=== PATIENT | male | born 1955 | race Caucasian/White ===

== ENCOUNTER → 2021-01-04 11:51 | Outpatient (CLI) | payer OTHER, SELFPAY ==
[2021-01-04 12:40] LABS: COVID19 -Nasal RAPID Negative (Negative)
== END ==
PROVIDERS: Family Provider Nurse Practitioner; PCP Nurse Practitioner; Visit Provider Physician Assistant
DX: Z20.822 Contact with and (suspected) exposure to COVID-19 (principal)
CPT/HCPCS: 87635

== ENCOUNTER 2021-01-07 10:55 | Day surgery (SDC) | payer OTHER, SELFPAY ==
[2021-01-03 13:09] VITALS: BMI 35.9
[2021-01-07] VITALS (8 sets, daily range): BP systolic 82–135; BP diastolic 29–78; PULSE 75–95; RESP 12–16; TEMP 36.2–36.8; O2SAT 93–99; BMI 36.6
[2021-01-07] MEDS: LACTATED RINGERS 1,000 ML 42 ML IV (11:59)
[2021-01-07] MEDS: CELECOXIB 200 MG CAPSULE PO (12:06)
[2021-01-07] MEDS: ACETAMINOPHEN 325 MG TABLET 975 MG PO (12:06)
[2021-01-07] MEDS: PREGABALIN 75 MG CAPSULE PO (12:07)
--- NOTE | 2021-01-07 12:33 | PM.PREOP ---
Pre-operative Note COVID-19 COVID-19 status: Negative Result date/Date tested (Pos, Neg/Pending): 01/04/21 Interval Note History & Physical reviewed/Exam performed by Physician: Yes Changes to H&P: No
--- NOTE | 2021-01-07 14:07 | SUR.OPER ---
Supine on padded OR bed. Pillow under head, arms secured on padded armboards <90 degree abduction. Safety belt across torso. Non-operative leg secured with tape over blanket over lower leg. Operative leg secured in DeMayo positioner.
[2021-01-07] MEDS: BUPIVACAINE 0.25% (PF) 30 ML, EPINEPHrine 0.15 MG INJ (14:15)
[2021-01-07] MEDS: CEFAZOLIN 1 GM VIAL 2 GM IV (14:16)
--- NOTE | 2021-01-07 14:43 | SUR.PHASEI ---
Pt brought to PACU by LUMBER STACKER OPERATOR and SYD, Oral Airway in place, removed at 1445, pt woke up, airway removed, a/ox 4, able to ask for apple juice.
[2021-01-07] MEDS: fentaNYL 100 MCG/2 ML INJ IV ×2 (14:54→14:59)
--- NOTE | 2021-01-07 14:57 | PM.OP.1 ---
Operative Date/Time/Diagnoses Date of procedure: 01/07/21 Time of procedure: 14:57 Pre-op diagnosis: Patellofemoral pain after left total knee replacement Post-op diagnosis: same Procedure & Clinicians Procedure: Open lateral release with partial patellectomy, left knee Same procedure as scheduled: Yes Indications: The patient is a 65-year-old gentleman who had a total knee replacement performed by a different surgeon with good relief of pain except for persistent pain in the patellofemoral region. Radiographs appear to show impingement of the lateral patella on the metal of the lateral femoral condyle. He has agreed to open lateral release and excision of the impinging bone after discussion the risks benefits and alternatives. Risks discussed included but were not limited to: Failure to improve, infection, nerve damage, deep venous thrombosis, pulmonary embolism, stroke, myocardial infarction, permanent paralysis, aspiration pneumonia and . Surgeon: Mukul Viera Phlebotomy Support Tech: Mirella Lainez Click Yes if Unassisted: No Anesthesia Type: General and Local Operative Notes Findings: Impingement of the lateral patellar facet on the metal of the lateral femoral condyle. The lateral soft tissues were under considerable tension and immediately retracted upon lateral release. Closure Type: primary Specimen(s): none sent Estimated Blood Loss (mL): 1 Blood products transfused: none Tourniquet time (min): 10 Procedure in detail: The patient was seen in the preoperative area where he identified his left knee as the operative site and this was marked with my initials. Was taken to the operating room and placed on the operating room table in a supine position where he underwent induction with general anesthetic. He received preoperative antibiotics. A tourniquet was placed about his proximal left thigh and his left leg was prepared from the toes the tourniquet with ChloraPrep in the usual fashion draped through sterile drapes. A daytime babysitter-out was performed prior to incision. The leg was elevated and exsanguinated with an Esmarch bandage the tourniquet inflated to 250 mmHg. His pre-existing total knee scar was reopened and skin flaps gently mobilized with care being taken not to buttonhole the skin. A lateral release was then performed from the tibial plateau to the superior pole of the patella avoiding the patellar tendon and the vastus lateralis. This immediately sprung open indicating the tension the tissues had been under. The un protected lateral portion of the patella was then excised using a saw with care being taken not to impinge or cut on the plastic patellar button. At this point the wound was copiously irrigated. We did inspect the wound visually and by palpation and it appeared that all components were well fixed. I did release scar from the anterior interval between the patellar tendon and the anterior tibia. I also swept the lateral gutter and the suprapatellar pouch to ensure that these had not been completely scarred in. The knee was copiously irrigated with sterile saline solution. The tourniquet was deflated at a total tourniquet time of 10 minutes and hemostasis obtained with electrocautery. Closure was obtained with 3-0 Vicryl the subcutaneous layer and a running 3-0 barbed suture for skin. Dermabond was then applied. The knee was injected through a lateral approach with 20 mL of 0.25% Marcaine for postoperative pain control. A dressing of an Aquacel Ag dressing and an Derek wrap were applied. The patient was then transported to the recovery room in good condition having tolerated the procedure well. Complications: none Post-operative Condition: stable Disposition: PACU Plan for aftercare: The patient will be discharged today. He will be allowed to weight bear as tolerated. He will follow up in the office in 10-14 days. A prescription for oxycodone in 1 for or hydroxyzine have been provided for postoperative pain management.
[2021-01-07] MEDS: hydrOXYzine pamoate 25 MG CAPSULE PO (15:12)
[2021-01-07] MEDS: OXYCODONE IR 5 MG TABLET PO ×2 (15:12→15:43)
== END 2021-01-07 16:40 | disposition home or self-care (01) ==
PROVIDERS: Family Provider Nurse Practitioner; PCP Nurse Practitioner; Referring Provider Nurse Practitioner; Visit Provider Orthopaedic Surgery
PROC: 0SRD0JZ Replacement of Left Knee Joint with Synthetic Substitute, Open Approach (ICD-10-PCS; CPT 27447; principal; 2021-01-07 12:45)
DX: M25.562 Pain in left knee (principal); M25.862 Other specified joint disorders, left knee; Z96.652 Presence of left artificial knee joint; I10 Essential (primary) hypertension; G47.33 Obstructive sleep apnea (adult) (pediatric); K21.9 Gastro-esophageal reflux disease without esophagitis
CPT/HCPCS: 27350; 64450; J0171; J0690; J2704; J3010

== ENCOUNTER → 2021-04-29 13:11 | Outpatient (CLI) | payer OTHER, SELFPAY ==
[2021-04-29 15:51] LABS: COVID19 -Nasal RAPID Negative (Negative)
== END ==
PROVIDERS: Family Provider Nurse Practitioner; PCP Nurse Practitioner; Visit Provider Family Medicine Sleep Medicine
DX: Z20.822 Contact with and (suspected) exposure to COVID-19 (principal)
CPT/HCPCS: 87635; C9803

== ENCOUNTER 2021-05-03 10:35 | Observation (INO) | payer OTHER, SELFPAY ==
[2021-04-29 09:51] VITALS: BMI 35.9
[2021-05-01] VITALS (24 sets, daily range): BP systolic 105–135; BP diastolic 45–83; PULSE 76–99; RESP 14–18; TEMP 36.3–36.8; O2SAT 95–99; BMI 35.9
--- NOTE | 2021-05-01 06:00 | DI.RAD.S_ITS ---
PROCEDURE: XR KNEE RT 1TO2V INDICATIONS: post op total knee TECHNIQUE: 3 view(s) of the knee acquired. COMPARISON: [facility], , KNEE 1-2 VIEWS LEFT, 06/03/2017, 10:06. FINDINGS: Bones: Patient is status post knee joint arthroplasty. Hardware components are in expected positions. Visualized bony structures are intact. Soft tissues: Overlying postoperative changes are noted. IMPRESSION: Status post right total knee arthroplasty with expected postsurgical soft tissue changes. No evidence for acute hardware complication. Dictated by: Gerson Connolly M.D. on 05/01/2021 at 17:11 Approved by: Gerson Connolly M.D. on 05/01/2021 at 17:12
--- NOTE | 2021-05-01 10:58 | SUR.OPER ---
Supine on padded OR bed. Pillow under head, arms secured on padded armboards <90 degree abduction. Safety belt across torso. Non-operative leg secured with tape over blanket over lower leg. Operative leg secured in DeMayo/Mike/Nathe positioner. Foam padded brace at thigh of operative leg.
--- NOTE | 2021-05-01 12:27 | PM.PREOP ---
Pre-operative Note COVID-19 COVID-19 status: Negative Result date/Date tested (Pos, Neg/Pending): 04/29/21 Criteria for continued procedure: Increased loss of function, Continuing or worsening of significant or severe pain and Non-surgical alternatives not available or appropriate per current SOC Interval Note History & Physical reviewed/Exam performed by Physician: Yes Changes to H&P: No
[2021-05-01] MEDS: LACTATED RINGERS 1,000 ML 42 ML IV (12:38)
[2021-05-01] MEDS: ACETAMINOPHEN 325 MG TABLET 975 MG PO (12:44)
[2021-05-01] MEDS: CELECOXIB 200 MG CAPSULE PO (12:45)
[2021-05-01] MEDS: PREGABALIN 75 MG CAPSULE PO (12:45)
[2021-05-01] MEDS: CEFAZOLIN 2 GM/20 ML SYRINGE IV (13:23)
[2021-05-01] MEDS: TRANEXAMIC ACID 1,000 MG VIAL 1000 MG INJ ×2 (13:23→14:42)
[2021-05-01] MEDS: BUPIVACAINE 0.5% W/ EPI (PF) 30 ML VIAL INJ (13:37)
[2021-05-01] MEDS: MORPHINE 4 MG/ML INJ INJ (13:39)
[2021-05-01] MEDS: BUPIVACAINE LIPOSOME 266 MG/20 ML VIAL INJ (13:40)
--- NOTE | 2021-05-01 15:00 | P.OP_ITS ---
Operative Date/Time/Diagnoses Date of procedure: 05/01/21 Time of procedure: 15:01 Pre-op diagnosis: Right knee osteoarthritis Post-op diagnosis: same Procedure & Clinicians Procedure: right total knee replacement Same procedure as scheduled: Yes Indications: The patient has had progressively worsening right knee pain with radiographic changes consistent with arthritis. Non-operative management has failed and the patient has requested total knee replacement. The risks, benefits and alternatives to surgery were discussed with the patient prior to proceeding. Risks discussed included, but were not limited to, failure to relieve pain, stiffness, infection, nerve damage, deep venous thrombosis, pulmonary embolism, stroke, coma, heart attack, permanent paralysis and , as well as the potential need for eventual revision of the prosthetic. Surgeon: Mukul Viera Multifocal Button Grinder: Mirella Lainez Operative Notes Findings: severe medial compartment osteoarthritis with moderate patellofemoral degenerative change. Closure Type: primary Specimen(s): none sent Prosthetic devices, grafts, tissues, transplants, or devices: Implants used in this procedure were manufactured by the [employer] and [employer] and included the BCS II Journey total knee replacement with a size 7 Oxinium femur, size 7 non porous tibial base plate, a 9 mm cross-linked polyethylene tibial insert and a 41 mm oval Kelsy II patella. Applied: implant(s) Estimated Blood Loss (mL): 50 Blood products transfused: none Tourniquet time (min): 58 Procedure in detail: The patient was seen in the pre-operative area, where the patient identified the right knee as the operative site and this was marked with my initials. The patient received pre-operative antibiotics, and was taken to the operating room and placed on the operative table in the supine position. After satisfactory anesthesia, a head sugar reprocess operator out was performed. The right leg was encircled with a tourniquet about the proximal thigh, and the leg was prepared from the toes to the tourniquet with ChloraPrep in the usual fashion and draped through sterile drapes. The leg was elevated and exsanguinated with Eschmark bandage and the to urniquet inflated to 250 mmHg pressure. The knee was approached through an approximately 18 cm incision centered over the patella and carried into the knee through a medial parapatellar arthrotomy. The anterior osteophytes and soft tissues were removed. The rotational landmarks of Teller's line and the transepicondylar axis were marked on the femur with electrocautery, and intramedullary guide holes for the femur and tibia were created. The distal femoral cut was made in 6 degrees of valgus using the intramedullary guide at the primary cut setting. The proximal tibial cut was then made using the intramedullary guide, taking 9 mm of bone off the less involved side. The extension gap was checked and the rotation of the femoral component confirmed with the gap balancing system. The anterior, posterior and chamfer cuts were then made. The posterior osteophytes and soft tissues were then removed. The posterior capsule was injected with part of a mixture of 60 ml 0.25% Marcaine mixed with 20 ml Exparel and 4 mg of morphine for post-operative pain control. The remainder of this mixture was injected into the capsule and subcutaneous tissues during cement curing. The tibia was prepared with the rotation set by an extra medullary guide. Trial tibial and femoral components were then placed and the intercondylar notch cut through the femoral trial. Range of motion was 0-135 degrees, with good stability throughout the range. The patella was then cut to accommodate the patellar prosthetic. There was no need for a lateral release. The trials were then removed, and the femoral hole plugged with a bone plug. The bone was prepared with pulsatile lavage, and dried with a sponge. Cement was applied and the final prosthetics placed. Excess cement was removed during and after cement curing. After confirming there was no extruded cement posteriorly, the final tibial insert was placed. The knee was copiously irrigated and the tourniquet deflated. Hemostasis was obtained. The capsule was closed with interrupted # 2 polyester suture. The subcutaneous layer was closed with 3-0 Vicryl, and the skin with a running 3-0 V-Lock suture and Dermabond. An Aquacel Ag dressing was applied and the patient was taken to recovery having tolerated the procedure well. Complications: none Post-operative Condition: stable Disposition: PACU Plan for aftercare: The patient will be maintained on a standard total knee replacement protocol with weight bearing as tolerated. The patient will receive aspirin and sequential compression devices for DVT prophylaxis. The patient will be discharged home when safe for the home environment.
[2021-05-01] MEDS: HYDROMORPHONE 2 MG INJ IV ×5 (15:31→16:10)
[2021-05-01] MEDS: ACETAMINOPHEN 325 MG TABLET PO (16:18)
[2021-05-01] MEDS: OXYCODONE IR 5 MG TABLET PO ×3 (16:18→20:39)
[2021-05-01] MEDS: fentaNYL 100 MCG/2 ML INJ IV ×2 (16:21→16:46)
--- NOTE | 2021-05-01 16:54 | SUR.PHASEI ---
report called to Sussy Cuellar. Opportunity for questions given. Pt updated on transfer and plan of care and is agreeable. Pain more controlled, stating current level 08/16. Ice pack on surgical site. Pt heading to rm 211
--- NOTE | 2021-05-01 18:33 | PC.NURSE ---
Patient is alert and oriented x3, he had a total r.knee replacement. Dressing with aquacel to r.knee and parviz wrap in place. He is tolerating liquids without any nausea. He is getting LR at 100cc/hr. Given pain medication in recovery room and is comfortable at this time. PPx2 and cms wnl.
[2021-05-01] MEDS: LACTATED RINGERS 1,000 ML 100 ML IV (18:49)
[2021-05-01] MEDS: IBUPROFEN 400 MG TABLET PO ×2 (18:49→20:38)
[2021-05-01] MEDS: ACETAMINOPHEN 325 MG TABLET 650 MG PO ×2 (18:49→20:37)
[2021-05-01] MEDS: PANTOPRAZOLE DR 40 MG TABLET PO (20:39)
[2021-05-01] MEDS: CYCLOBENZAPRINE 10 MG TABLET PO (20:39)
[2021-05-01] MEDS: lisinopriL 10 MG TABLET PO (20:39)
[2021-05-01] MEDS: TERAZOSIN 5 MG CAPSULE 10 MG PO (20:41)
[2021-05-01] MEDS: ATORVASTATIN 20 MG TABLET 10 MG PO (21:14)
[2021-05-01] MEDS: ASPIRIN EC 81 MG TABLET PO (21:14)
[2021-05-01] MEDS: DOCUSATE 100 MG CAPSULE PO (21:14)
--- NOTE | 2021-05-01 21:32 | RT ---
Went to assess pt at 2105. Pt is refusing scheduled atrovent SVN and has no interest in taking while inpatient. Pt was not in any respiratory distress, SpO2 98% on RA, clear BS. Per pt, they don't take any MDIs at home. Will D/C scheduled atrovent SVN, but will keep PRN order. RN aware.
[2021-05-02] VITALS (7 sets, daily range): BP systolic 120–147; BP diastolic 56–75; PULSE 79–99; RESP 14–18; TEMP 36.3–37.2; O2SAT 96–98
[2021-05-02] MEDS: LACTATED RINGERS 1,000 ML 100 ML IV (04:30)
[2021-05-02] MEDS: OXYCODONE IR 5 MG TABLET PO (04:33)
[2021-05-02] MEDS: IBUPROFEN 400 MG TABLET PO ×4 (04:33→21:07)
[2021-05-02] MEDS: hydrOXYzine pamoate 25 MG CAPSULE PO (04:33)
[2021-05-02 05:32] LABS: Hematocrit 34.8 % (41-53); Hemoglobin 11.2 g/dL (13.5-17.5)
[2021-05-02] MEDS: OXYCODONE IR 10 MG TABLET PO ×2 (07:58→18:45)
[2021-05-02] MEDS: ASPIRIN EC 81 MG TABLET PO ×2 (07:58→18:45)
[2021-05-02] MEDS: SODIUM CHLORIDE 0.9% FLUSH 10 ML IV ×2 (07:59→18:47)
--- NOTE | 2021-05-02 08:31 | P.DS_ITS ---
History of Present Illness History of Present Illness Date Patient Seen: 05/02/21 Time Patient Seen: 08:32 Chief complaint: Right knee pain s/p right TKA Narrative: Patient is complaining of [id number] right knee pain this morning. He denies any new numbness or tingling, no shortness of breath or chest pain, fevers chills or night sweats. Overall the patient is feeling well, although he has not worked with physical therapy yet. Discharge Providers Provider Discharge Date: 05/02/21 Primary care physician: ZOHREH Bernard Consults: 05/01/21 17:52 Consult to Discharge Planning Routine Comment: Consult to Physical Therapy Evaluate & Treat Comment: Physician Instructions: postop TKA protocol Consult to Respiratory Therapy Evaluate & Treat Comment: Physician Instructions: Evaluate and treat Discharge provider: Mirella Lainez PA-C Summary Hospital Course Discharge Diagnosis: Right knee osteoarthritis Hospital Course: Operative Date/Time/Diagnoses Date of procedure: 05/01/21 Time of procedure: 15:01 Procedure & Clinicians Procedure: ?right total knee replacement Same procedure as scheduled: Yes Indications: ?The patient has had progressively worsening right knee pain with radiographic changes consistent with arthritis. Non-operative management has failed and the patient has requested total knee replacement. The risks, benefits and alternatives to surgery were discussed with the patient prior to proceeding. Risks discussed included, but were not limited to, failure to relieve pain, stiffness, infection, nerve damage, deep venous thrombosis, pulmonary embolism, stroke, coma, heart attack, permanent paralysis and , as well as the potential need for eventual revision of the prosthetic. Surgeon: Mukul Viera Sales Representative Publications: Mirella Lainez Operative Notes Findings: ?severe medial compartment osteoarthritis with moderate patellofemoral degenerative change. Closure Type: primary Specimen(s): none sent Prosthetic devices, grafts, tissues, transplants, or devices: ?Implants used in this procedure were manufactured by the [employer] and [employer] and included the BCS II Journey total knee replacement with a size 7 Oxinium femur, size 7 non porous tibial base plate, a 9 mm cross-linked polyethylene tibial insert and a 41 mm oval Kelsy II patella. Applied: implant(s) Estimated Blood Loss (mL): 50 Blood products transfused: none Tourniquet time (min): 58 Status at Discharge Cognitive/behavioral status at discharge: oriented Functional status at discharge: uses cane/walker Overall status at discharge: patient is progressing back to baseline Exam Vital Signs (past 8 hours): - 05/02/21 04:30 05/02/21 08:06 Temperature 97.6 F 98.0 F Pulse Rate 81 80 Respiratory Rate 18 18 Blood Pressure 142/69 H 147/56 H Pulse Oximetry 96 96 Oxygen Delivery Method Room Air Oxygen Flow Rate 0 Narrative Exam Narrative: Pleasant 66-year-old male, resting comfortably in bed, no acute distress. Dressing is clean, dry, intact. Bilateral lower extremities: Motor functions are grossly intact, sensation is grossly intact to light touch, calves are soft and nontender to palpation. Objective Labs Result Diagrams: 05/02/21 05:11 Labs: Laboratory Results - last 24 hr 05/02/21 05:11 Hgb 11.2 L Hct 34.8 L PFSH Medical History Anemia Arthritis BPH (benign prostatic hyperplasia) Chronic pain Dysphagia Esophageal stricture GERD (gastroesophageal reflux disease) History of esophageal dilatation HTN (hypertension) Inflammation of joint of right knee Insomnia Kidney stone (~2006) Lumbar spinal stenosis YOLY (obstructive sleep apnea) Osteoarthritis RLS (restless legs syndrome) Tubular adenoma Surgical History History of esophagogastroduodenoscopy (EGD) (10/25/18) History of hip surgery (2008) History of total left knee replacement (2017) Hx of appendectomy Hx of arthroscopy of left knee Hx of colonoscopy with polypectomy Hx of prior ablation treatment Hx of tonsillectomy Status post epidural steroid injection Social History household members: spouse Smoking Status: Never smoker alcohol intake: former Discharge Assessment & Plan Assessment and Plan Assessment: Stable status post right total knee arthroplasty Plan of Treatment: -mobilize with PT. Weightbearing as tolerated front wheel walker -aspirin 81 mg twice daily x6 weeks for DVT prophylaxis -continue with current pain regimen -DC home today when cleared by PT Discharge Plan Discharge Plan Patient Disposition: Home Discharge orders & Medications Discharge Orders: Discharge (Order); Ordered 05/02/21 Ordered By: Mirella Lainez Prescriptions: New acetaminophen 500 mg capsule 500 mg PO Q4H MDD Max 3000 mg per day PRN (Reason: fever or pain) Qty: 90 0RF aspirin 81 mg Tablet,Delayed Release (Dr/Ec) 81 mg PO BID 42 Days Qty: 84 0RF Rx Instructions: Prevent blood clots docusate sodium 100 mg Capsule 100 mg PO BID PRN (Reason: Constipation from narcotic pain meds) Qty: 30 0RF hydroxyzine pamoate 25 mg Capsule 25 mg PO Q6HR PRN (Reason: Pain/spasms/nausea) Qty: 30 0RF ibuprofen 400 mg Tablet 400 mg PO Q4HR MDD Max 2400 mg per day PRN (Reason: Pain/inflammation) Qty: 90 0RF Rx Instructions: Take with food oxycodone 10 mg Tablet 10 mg PO Q3HR PRN (Reason: Pain, Severe (7-10)) Qty: 42 0RF Continued cyclobenzaprine 10 MG tablet 10 mg PO HS Qty: 0 0RF lovastatin 40 MG tablet 40 mg PO HS Qty: 0 0RF omeprazole 40 MG capsule,delayed release(DR/EC) 40 mg PO BEDTIME Qty: 0 0RF terazosin 10 MG capsule 10 mg PO HS Qty: 0 0RF polysaccharide iron complex [iFerex 150] 150 mg iron Capsule 150 mg PO DAILY 0RF lisinopril 10 mg Tablet 10 mg PO BEDTIME 0RF folic acid 1 mg PO DAILY 0RF Label Comments: not taking ipratropium bromide 21 mcg inhalation BID 0RF iron 150 mg PO DAILY 0RF Label Comments: not taking Discontinued hydrocodone-acetaminophen 7.5-325 mg Tablet 1 tab PO Q4-6H PRN (Reason: Pain) 0RF Follow up/Referrals: Lois Rodriguez ARNP [Primary Care Provider] - Mukul Viera MD [Physician] - (10-14 days for postoperative visit) Diet/Activity/Treatments Diet: Diet as Tolerated Other treatments: Medications: -Aspirin 81mg twice daily x6 weeks to prevent blood clots. -OTC Tylenol 500 mg 1 tablet every 4 hours as needed for pain/fever. Max 6 tablets per day. -Ibuprofen 400 mg 1 tablet every 4 hours as needed for pain/inflammation. Max 2,400 mg per day. -Oxycodone 10 mg take 1/2-1 tablets every 4 hours as needed for moderate-severe pain (narcotic pain medication). -Vistaril (hydroxyine) 25mg 1 tab every 4 hours as needed for spasms/pain/nausea. -As needed medications: -Ducolax and /or MiraLax as needed for constipation from narcotic pain medications. -Pepcid AC as needed for stomach upset (usually from aspirin or ibuprofen). Dressing/Wound care: -Remove the Derek wrap 48 hours after surgery. -Keep Aquacell dressing in place until postoperative follow-up office visit. -Okay to shower. Keep wound out of direct water stream. No soaking or submerging until all the scabs fall off (approximately 6 weeks). -Please call the office if dressing becomes wet, soiled, or saturated. Activities: -Weight-bearing as tolerated. Use front wheeled walker, and progress to cane when safe. -Continue with home exercises as directed by your physical therapist. -Elevate ?toes above the nose if you have significant swelling in your lower leg. (A wedge pillow is easiest.) -Ice your incision as needed for pain/inflammation/swelling. Protect your skin with a folded pillowcase. Follow-up: -Follow-up with your surgeon or PA in the office in 10-14 days after surgery. -Follow-up with your surgeon 6 weeks postoperatively. Call the office if you have chest pain, shortness of breath, significant swelling that will not resolve with elevating, fever over 101?, significantly worsening pain. [facility]: [phone] Skin/Wound/Dressing Care Report to your healthcare provider any signs of infection, such as:: chills, fever, night sweats, unusual drainage and unusual redness Visit Report/Discharge Packet Instructions: DI for Knee Replacement Stand Alone Forms: Surgery Discharge Discharge Data Primary Care Provider: Lois Rodriguez Attending Provider: Mukul Viera
--- NOTE | 2021-05-02 10:15 | PT.IIE ---
Current Diagnoses Unilateral primary osteoarthritis, right knee (05/01/21) Surgery Performed Operation Date: 05/01/21 12:00 Actual Procedures p Total Knee Arthroplasty(Right) - Mukul Viera MD Medical History (Last Reviewed 05/02/21 @ 08:33 by Mirella Lainez PA-C) Anemia Arthritis BPH (benign prostatic hyperplasia) Chronic pain Dysphagia Esophageal stricture GERD (gastroesophageal reflux disease) History of esophageal dilatation HTN (hypertension) Inflammation of joint of right knee Insomnia Kidney stone (~2006) Lumbar spinal stenosis YOLY (obstructive sleep apnea) Osteoarthritis RLS (restless legs syndrome) Tubular adenoma Physical Therapy Inpatient Evaluation/Re-Eval M1 PT/OT-IP Prior Functional Status Start: 05/02/21 13:03 Freq: NEEDED Status: Active Protocol: Document 05/02/21 10:15 AB (Rec: 05/02/21 13:19 AB [email or web address]) Medical Review Prior Functional Status Medical History Reviewed Yes Communication able to make needs known Mobility and Gait pt stated that he is modified independent with all mobilities and ambulation without AD Social History Household Members spouse Living Arrangements House Number of Floors (Floors) Two Floors Number of Stairs To Enter/Railing? 2 steps without rails ( pt stated that he uses 1 crutch to assist him) 20 steps with R rail ascending to bedroom level Home Environment Standard Height Toilet,Tub/ Shower Home Equipment Straight Cane,Crutches,Raised Toilet Seat w/Armrests,Grab Bars In Shower Additional Social History Comment pt has a standard walker pt stated that his spouse goes to dialysis and is limited to how she can assist pt M2 PT-IP Current Condition Start: 05/02/21 13:03 Freq: NEEDED Status: Active Protocol: Document 05/02/21 10:15 AB (Rec: 05/02/21 13:19 AB [email or web address]) Physical Therapy Current Condition Current Condition Evaluation Date 05/02/21 Treatment Diagnosis s/p R TKA; difficulty in walking Onset Date 05/01/21 M3 PT-IP Subjective Start: 05/02/21 13:03 Freq: NEEDED Status: Active Protocol: Document 05/02/21 10:15 AB (Rec: 05/02/21 13:19 AB [id number]) Subjective Physical Therapy Visit Type Type Initial Evaluation Visit Start Time 10:15 Visit Stop Time 10:50 Total Visit Minutes 35 Number of CANAL TENDER Visits 0 Physical Therapy Visit Comments Patient Comments stated that he cannot move his RLE Therapy Pain Assessment Pain When Pain Assessed At Rest Pain Present Pain Present Pain Reported Location Right Knee Intensity 5 Scale Used increases to 9/10 with mobility Pain Management Techniques Apply Cold,Modification of Treatment,Re-positioning, Timing of Activity with Medications M4 PT-IP Mobility and Gait Start: 05/02/21 13:03 Freq: NEEDED Status: Active Protocol: Document 05/02/21 10:15 AB (Rec: 05/02/21 13:19 AB [id number]) PT-Bed Mobility Assessment Supine to Sit Supine to Sit Minimal Assistance PT-Transfer Assessment Sit to and From Stand Sit to and from Stand Moderate Assistance,1 Person Assistance,Use of Upper Extremities Equipment Transfer Assistive Device Gait Belt,Front Wheeled Walker Orthotic/Prosthetic Devices or Brace: No Transfers Transfer Destination Chair Transfer Technique ambulated Transfer Ability Level of Assist Moderate Assistance,1 Person Assistance,Use of Upper Extremities Comments Mobility Comments pt requiring min A for supine to sit. c/o increase R knee pain with mobility to 9/10. pt has decrease safety awareness and tends to guard RLE. pt sat on EOB CGA. completed sit to stand mod A and cues and ambulated in room using standard walker mod A and cues ~ 20 ft. instructed pt to sit on EOB mod A for controlled descent. educated pt on techniques with sit to stand and completed sit to stand from chair x 2 reps min to mod A and max cues. increase UE use to support on walker. pt currently only has ~ 35 deg R knee flexion and pt very guarded and does not want to bend knee. educated pt on importance of ROM. pt understood. positioned pt on chair. call light and table placed within reach. Gait Assessment Gait Gait Assistance Required: Moderate Assistance,1 Person Assist Distance (Feet) 20 Able to Maintain Weight Bearing Status Yes During Gait Assistive Devices Assistive Device Gait Belt,Standard Walker Orthotic/Prosthetic Devices or Brace: No Gait Deviations General Gait Pattern Antalgic,Decreased Stride Length,Decreased Feet Clearance Factors Limiting Gait Function Factors Limiting Gait Function Decreased Activity Tolerance, Decreased Strength,Limited Range of Motion,Pain,Poor Balance,Poor Safety Awareness PT-Balance Assessment Sitting Balance and Reactions Static Sitting Balance Ability Good Dynamic Sitting Balance Ability Fair Standing Balance and Reactions Static Standing Balance Ability Poor Dynamic Standing Balance Ability Poor Device Used FWW M5 PT-IP Objective Assessments Start: 05/02/21 13:03 Freq: NEEDED Status: Active Protocol: Document 05/02/21 10:15 AB (Rec: 05/02/21 13:19 AB [email or web address]) Orientation Orientation/Cognition Level of Alertness Alert Orientation Name Language Function Ability Hard of Hearing Safety Awareness Decreased Safety Awareness Memory Description Short Term Impaired Gross Range of Motion Lower Extremity ROM Assessment Right Impaired Impairments R knee flexion: ~ 35 deg R knee extension: ~ 20 deg less to 0 Strength Lower Extremity Strength Assessment Right Impaired Hip 3+/5 Knee 3/5 Coordination Assessment Gross Coordination Gross Coordination WNL Muscle Tone Muscle Tone WNL Yes M6 PT-IP Treatment Start: 05/02/21 13:03 Freq: NEEDED Status: Active Protocol: Document 05/02/21 10:15 AB (Rec: 05/02/21 13:19 AB [id number]) Physical Therapy Treatment Education Education Provided Precautions,Weight Bearing Status,Post-Op Packet,Safety M7 PT-IP Assessment and Plan Start: 05/02/21 13:03 Freq: NEEDED Status: Active Protocol: Document 05/02/21 10:15 AB (Rec: 05/02/21 13:19 AB [email or web address]) PT Summary Assessment and Plan Potential Rehabilitation Potential Fair Status of Condition at Evaluation Evolving Summary Impairments Pain,ROM,Strength,Balance, Coordination,Sensation,Tone, Cognition,Bed Mobility, Transfers,Gait,Activity Tolerance Assessment Summary pt requiring mod A and max cues with all tasks. c/o increase pain of 9/10 R knee with mobility. pt has limited assistance at home and spouse goes to dialysis and cannot be with home to assist pt. d/ c plan depending on progress. Pt has 2 steps to enter the house without rails and 20 steps with R rail to get to bedroom level. stair climbing has to be complete safely for safe d/c. Goals Bed Mobility Goal Independent Transfer Goal Independent,Front Wheeled Walker Gait Goal Independent,Four Wheel Walker Gait Distance 200 Other Goals ambulation using std walker up/down 2 steps 1 crutch SBA + 20 steps R rail SBA Days to Meet Goals 10 Frequency of Treatment Frequency Of Treatment Twice a Day Treatment Plan Physical Therapy Treatment Plan Bed Mobility Training,Transfer Training,Gait Training, Therapeutic Exercise,Balance Retraining,Post Op Education, Discharge Planning,Hot or Cold Pack,Neuromuscular Re-ed, Coordination Retraining,Manual Therapy Weight Bearing Status Weight Bearing Status Weight Bear as Tolerated Allowed Weight Bearing Amount (enter % RLe wBAT or #) (%) Recommendations To Nursing Amount of Assist Needed 1 Person Assist Discharge Recommendations PT Discharge Recommendations Home with 29/09 Assist Available,Home Health,SNF Rehab,Home vs SNF Transportation Needs at Discharge Private Vehicle,Wheelchair/ Cabulance
[2021-05-02] MEDS: HYDROMORPHONE 2 MG TABLET PO ×3 (10:45→21:04)
[2021-05-02] MEDS: ACETAMINOPHEN 325 MG TABLET 650 MG PO ×2 (10:46→18:46)
--- NOTE | 2021-05-02 11:23 | CM.DANOTE ---
DCP: Case received, EMR reviewed and met with patient. Introduced self and role. Was able to meet with patient and obtain information regarding his baseline activity status prior to surgery. DCP assessment completed with information currently available. Patient is a 66 year old male who admitted yesterday morning to the care of the orthopedic team. PCP: Dr. Rodriguez. Payer: confirmed: [facility]. Patient came to the hospital via private vehicle for a surgical procedure. Patient had right total knee arthroplasty secondary to osteoarthritis of his knee. Met with patient in his room. He is alert and oriented. He indicated, this is his second knee surgery, he had his other knee done in January. Confirmed that patient resides in [facility] with his spouse, Caroline. He is employed at [employer]. He indicated that he is independent at his baseline, but does have some stairs to navigate at home. He is hopeful to continue with outpatient P.T. P: Patient has discharge orders for home today, he will work with the therapy team prior to discharge. Corie Graham RN/Marine Electronics Repairer. Discharge Planning/Care Management CM Discharge Assessment Start: 05/02/21 11:21 Freq: Status: Active Protocol: Document 05/02/21 11:21 (Rec: 05/02/21 11:23 [id number]) Discharge Planning Assessment Assigned Paraffiner Corie Graham RN/Marine Electronics Repairer Advance Directives? No History Provided By Patient,Medical Record Prior Living Arrangements House Household Members spouse Type of transporation used prior to Drives own vehicle admit Independent with ADL's Yes Is patient alert and oriented? Yes Caregiver for Another No Patient/Family Preference OP PT Therapy Barriers to Discharge No Discharge Plan Home Transportation Arrangement Spouse, or family member Referrals Initiated None needed Whiteboard Updated in Patient Room with Yes name and ext. # of Paraffiner Review Status In Process Next Review Type Continued Stay Review Pre-Anesthesia Assessment Start: 04/29/21 09:51 Freq: Status: Active Protocol: Document 04/29/21 09:51 CAB (Rec: 04/29/21 10:26 CAB [id number]) Pre-Anesthesia Assessment Patient Information Reviewed Via Phone Assessment Assessment Completed With Patient H&P Completed Within 30 Days Yes Diagnostic Results BMP/CMP,CBC,EKG Comment Outside labs/EKG scanned, COVID screen 04/29/21 Primary Care Provider Lois Rodriguez Seen Specialist in Last 12 Months Yes Specialist Seen Orthopedist Comment PCP visit 04/23/20 scanned to record Primary Language Yoruba Sheep Farm Manager Required No Height 6 ft 2 in Weight 280 lb Body Mass Index (BMI) 35.9 Hearing Ability Normal Visual Assist None Dentition Type Teeth, Natural Present,Teeth, Broken,Teeth, Missing Barriers to Learning None Hx Anesthesia Reactions No: Hx of esophageal stricture w/dilation, untreated YOLY Hx Family Anesthesia Reaction No Hx Malignant Hyperthermia No Hx Blood Transfusions No Hx Blood Transfusion Reaction No Anesthesia Review Requested No Food Photographer No alcohol intake former Smoking Status Never smoker Substance Use Type does not use Pain Present Pain Reported Musculoskeletal Symptoms Abnormal Gait,Difficulty Walking,Joint Pain,Limited Range of Motion History of Falling (Recent or History of Yes ) Patient is completely paralyzed or No completely immobile Mental Status Oriented to own ability Is patient on oxygen? No Does patient have MOY/SOB No Hx Sleep Apnea Yes: Does not tolerate CPAP CPAP/BIPAP use prescribed not used Can You Climb a Flight of Stairs Without Yes SOB Hx Chest Pain No Hx SOB No Hx Syncope or Dizziness No Anti-Coagulant Therapy No Has a Aluminum Hydroxide Process Operator No Cardiac Testing No Hx Pacemaker/ICD No Pacemaker Rep Required? No dysphagia Yes: Recurrent choking, hx esophageal stricture/dilation Gastrointestinal Symptoms Reflux Urinary Catheter Present No Hx Urinary Self Catheterization No Diabetes No HgbA1C 5.5 Date 04/02/21 Hx Drug Resistant Organism No Presence of External or Internal Medical Yes: Left knee/hip Devices Have you had any close contact with No someone diagnosed with COVID-19? Received a COVID vaccine? Yes Received all doses? Yes Marital Status Lives With spouse Prior Living Arrangements House Number of Floors (Floors) Two Floors Support System Spouse Does the Patient Have Assistance After Yes Surgery Patient Discharge Plan Description Return Home Comment Pt not advised on length of stay per surgeon Feels Safe in Current Environment Yes Been Physically Hurt or Threatened By a No Person in Current Environment Do you have thoughts of harming yourself None or others? Are you currently considering suicide? No Do you have a plan to hurt yourself or No Plan others? Do You Have Any Spiritual Beliefs That No May Affect Your HC Choices? Do You Have Any Cultural Practices That No May Affect Your HC Choices? Who Can We Speak to About Patient's Care Family, friends Identifying Code for Release of Patient Declines to issue Information Health Care Proxy/Next of Kin Caroline () Health Care Proxy Phone Number Pt to update dos Advance Directives? No Power of Knife Operator No PAC Instructions Durable medical equipment, Medications to take/avoid, Nasal antibiotic,No ETOH/ petroleum product on skin DOS, NPO,Pre-op antibiotic,Pre- surgical wash,Sturdy shoes/ comfortable clothes,Do not bring valuables and remove jewelry
--- NOTE | 2021-05-02 14:08 | PC.NURSE ---
Patient up with therapy early this morning when up pain 8/10. Requesting more pain medication. Gave 2mg po dilaudid. Patient later reports pain is improved down to 4/10. Patient able to work with therapy again. Therapy requires patient to have another session tomorrow morning.
--- NOTE | 2021-05-02 14:09 | PT.IPTN ---
Current Diagnoses Unilateral primary osteoarthritis, right knee (05/01/21) Surgery Performed Operation Date: 05/01/21 12:00 Actual Procedures p Total Knee Arthroplasty(Right) - Mukul Viera MD Physical Therapy Treatment Note M2 PT-IP Current Condition Start: 05/02/21 13:03 Freq: NEEDED Status: Active Protocol: Document 05/02/21 10:15 AB (Rec: 05/02/21 13:19 AB [id number]) Physical Therapy Current Condition Current Condition Evaluation Date 05/02/21 Treatment Diagnosis s/p R TKA; difficulty in walking Onset Date 05/01/21 M3 PT-IP Subjective Start: 05/02/21 13:03 Freq: NEEDED Status: Active Protocol: Document 05/02/21 13:44 KS (Rec: 05/02/21 14:24 KS [id number]) Subjective Physical Therapy Visit Type Type Treatment Note Visit Start Time 13:44 Visit Stop Time 14:09 Total Visit Minutes 25 Number of MANAGER ONCOLOGY Visits 1 Physical Therapy Visit Comments Patient Comments Pt agreeable to working w/ therapy. Therapy Pain Assessment Pain When Pain Assessed During Mobility Pain Present Pain Present Pain Reported Location Right Knee Intensity 4 Scale Used Numeric (0 - 10) Description Tightness Pain Management Techniques Apply Cold,Modification of Treatment,Re-positioning, Timing of Activity with Medications M4 PT-IP Mobility and Gait Start: 05/02/21 13:03 Freq: NEEDED Status: Active Protocol: Document 05/02/21 13:44 KS (Rec: 05/02/21 14:24 KS [id number]) PT-Transfer Assessment Sit to and From Stand Sit to and from Stand Minimal Assistance,1 Person Assistance,Use of Upper Extremities Equipment Transfer Assistive Device Gait Belt,Front Wheeled Walker Orthotic/Prosthetic Devices or Brace: No Transfers Transfer Destination Chair Transfer Technique ambulated Transfer Ability Level of Assist Contact Guard Assistance, Minimal Assistance,1 Person Assistance,Use of Upper Extremities Comments Mobility Comments Pt in chair upon arrival and hesitant to participate due to R knee/quad pain but agreeable. Pt Min A for sit<> stand w/ FWW and the ambulatd ~60 ft around room w/ SW and CGA and cues for sequencing and turning. Pt reported feeling less pain and more stable compred to this morning but feels he is unable to tolerate more ambulation or stairs today. Pt returned to chair and demonstrated gait belt to assist w/ raising RLE. Pt states he has been completing LE exercises throughout the day. Pt left in chair w/ all needs in reach and alarm on. Gait Assessment Gait Gait Assistance Required: Contact Guard Assist,1 Person Assist Distance (Feet) 60 Able to Maintain Weight Bearing Status Yes During Gait Assistive Devices Assistive Device Gait Belt,Standard Walker Gait Deviations General Gait Pattern Antalgic,Decreased Stride Length,Decreased Feet Clearance Factors Limiting Gait Function Factors Limiting Gait Function Decreased Activity Tolerance, Decreased Strength,Limited Range of Motion,Pain,Poor Balance,Poor Safety Awareness Comments Gait Comments Pt w/ 1x slight lateral LOB but recovered CGA to Min A. Able to ambulate 60 ft w/ SW w / step to pattern. Stair Climbing Assessment Comments Stair Climbing Comments Will assess tomorrow. PT-Balance Assessment Sitting Balance and Reactions Static Sitting Balance Ability Good Dynamic Sitting Balance Ability Fair Standing Balance and Reactions Static Standing Balance Ability Fair Dynamic Standing Balance Ability Fair Device Used FWW M5 PT-IP Objective Assessments Start: 05/02/21 13:03 Freq: NEEDED Status: Active Protocol: Document 05/02/21 10:15 AB (Rec: 05/02/21 13:19 AB [id number]) Orientation Orientation/Cognition Level of Alertness Alert Orientation Name Language Function Ability Hard of Hearing Safety Awareness Decreased Safety Awareness Memory Description Short Term Impaired Gross Range of Motion Lower Extremity ROM Assessment Right Impaired Impairments R knee flexion: ~ 35 deg R knee extension: ~ 20 deg less to 0 Strength Lower Extremity Strength Assessment Right Impaired Hip 3+/5 Knee 3/5 Coordination Assessment Gross Coordination Gross Coordination WNL Muscle Tone Muscle Tone WNL Yes M6 PT-IP Treatment Start: 05/02/21 13:03 Freq: NEEDED Status: Active Protocol: Document 05/02/21 13:44 KS (Rec: 05/02/21 14:24 KS [id number]) Physical Therapy Treatment Exercises Exercises Ankle Pumps,Gluteal Sets,Quad Sets,Heel Slides,Straight Leg Raises Education Education Provided Precautions,Weight Bearing Status,Post-Op Packet,Safety M7 PT-IP Assessment and Plan Start: 05/02/21 13:03 Freq: NEEDED Status: Active Protocol: Document 05/02/21 13:44 KS (Rec: 05/02/21 14:24 KS [id number]) PT Summary Assessment and Plan Potential Rehabilitation Potential Fair Status of Condition at Evaluation Evolving Summary Impairments Pain,ROM,Strength,Balance, Coordination,Sensation,Tone, Cognition,Bed Mobility, Transfers,Gait,Activity Tolerance Assessment Summary Pt w/ increased tolerance for activity, able to ambulate 60 ft w/ SW CGA 1x small OB laterally but able to recover. Pt reports fatigue and increased pain following ambulation and did not feel able to complete stair training today. Pt will need to increase ambulation distance and complete stairs prior to d/c home. Pt will benefit from outpatient therapy which he has scheduled to begin in early May. Goals Bed Mobility Goal Independent Transfer Goal Independent,Front Wheeled Walker Gait Goal Independent,Four Wheel Walker Gait Distance 200 Other Goals ambulation using std walker up/down 2 steps 1 crutch SBA + 20 steps R rail SBA Days to Meet Goals 10 Frequency of Treatment Frequency Of Treatment Twice a Day Treatment Plan Physical Therapy Treatment Plan Bed Mobility Training,Transfer Training,Gait Training, Therapeutic Exercise,Balance Retraining,Post Op Education, Discharge Planning,Hot or Cold Pack,Neuromuscular Re-ed, Coordination Retraining,Manual Therapy Weight Bearing Status Weight Bearing Status Weight Bear as Tolerated Allowed Weight Bearing Amount (enter % RLe wBAT or #) (%) Recommendations To Nursing Amount of Assist Needed 1 Person Assist Discharge Recommendations PT Discharge Recommendations Home with 29/09 Assist Available,Home Health,SNF Rehab,Home vs SNF Transportation Needs at Discharge Private Vehicle,Wheelchair/ Cabulance
[2021-05-02] MEDS: DOCUSATE 100 MG CAPSULE PO (18:45)
[2021-05-02] MEDS: TERAZOSIN 5 MG CAPSULE 10 MG PO (18:45)
[2021-05-02] MEDS: PANTOPRAZOLE DR 40 MG TABLET PO (18:46)
[2021-05-02] MEDS: ATORVASTATIN 20 MG TABLET 10 MG PO ×2 (18:46→21:05)
[2021-05-02] MEDS: lisinopriL 10 MG TABLET PO (18:47)
[2021-05-02] MEDS: CYCLOBENZAPRINE 10 MG TABLET PO (21:06)
[2021-05-03] MEDS: IBUPROFEN 400 MG TABLET PO ×4 (00:57→13:31)
[2021-05-03] MEDS: HYDROMORPHONE 2 MG TABLET PO ×4 (00:58→13:31)
[2021-05-03] MEDS: hydrOXYzine pamoate 25 MG CAPSULE PO (00:58)
[2021-05-03 04:54] VITALS: BP 139/65; PULSE 82; RESP 19; TEMP 36.9; O2SAT 98
[2021-05-03 08:41] VITALS: BP 130/62; PULSE 86; RESP 16; TEMP 37.2; O2SAT 97
[2021-05-03] MEDS: FOLIC ACID 1 MG TABLET PO (09:04)
[2021-05-03] MEDS: ASPIRIN EC 81 MG TABLET PO (09:04)
[2021-05-03] MEDS: DOCUSATE 100 MG CAPSULE PO (09:04)
[2021-05-03] MEDS: ACETAMINOPHEN 325 MG TABLET 650 MG PO (09:04)
[2021-05-03 10:19] VITALS: O2SAT 96
--- NOTE | 2021-05-03 10:30 | PT.IPTN ---
Current Diagnoses Unilateral primary osteoarthritis, right knee (05/03/21) Surgery Performed Operation Date: 05/01/21 12:00 Actual Procedures p Total Knee Arthroplasty(Right) - Mukul Viera MD Physical Therapy Treatment Note M2 PT-IP Current Condition Start: 05/02/21 13:03 Freq: NEEDED Status: Active Protocol: Document 05/02/21 10:15 AB (Rec: 05/02/21 13:19 AB [id number]) Physical Therapy Current Condition Current Condition Evaluation Date 05/02/21 Treatment Diagnosis s/p R TKA; difficulty in walking Onset Date 05/01/21 M3 PT-IP Subjective Start: 05/02/21 13:03 Freq: NEEDED Status: Active Protocol: Document 05/03/21 10:00 KS (Rec: 05/03/21 13:57 KS [id number]) Subjective Physical Therapy Visit Type Type Treatment Note Visit Start Time 10:00 Visit Stop Time 10:30 Total Visit Minutes 30 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 M4 PT-IP Mobility and Gait Start: 05/02/21 13:03 Freq: NEEDED Status: Active Protocol: Document 05/03/21 10:00 KS (Rec: 05/03/21 13:57 KS [id number]) PT-Bed Mobility Assessment Supine to Sit Supine to Sit Contact Guard Assistance Scooting Scooting to Edge of Bed Contact Guard Assistance PT-Transfer Assessment Sit to and From Stand Sit to and from Stand Contact Guard Assistance,1 Person Assistance,Use of Upper Extremities Equipment Transfer Assistive Device Gait Belt,Standard Walker Orthotic/Prosthetic Devices or Brace: No Transfers Transfer Destination Chair Transfer Technique ambulated Transfer Ability Level of Assist Contact Guard Assistance,1 Person Assistance,Use of Upper Extremities Comments Mobility Comments Pt on bed upon arrival and agreeable to ambulation and stairs. CGA for sup<>sit and sit<>stand w/ FWW, cues for hand placement. Pt ambulated ~ 100 ft to stairs w/ SW SBA w/ cues for equal step length. Pt ascended/descended 3 steps x2 w/ step to pattern and crutch under RUE for support as he is used to doing at home, all SBA w/ cues. Pt ambulated back to room and transferred to chair SBA and left in chair w/ all needs in reach. Gait Assessment Gait Gait Assistance Required: Standby Assistance,Contact Guard Assist,1 Person Assist Distance (Feet) 200 Able to Maintain Weight Bearing Status Yes During Gait Assistive Devices Assistive Device Gait Belt,Standard Walker Gait Deviations General Gait Pattern Antalgic,Decreased Stride Length,Decreased Feet Clearance Factors Limiting Gait Function Factors Limiting Gait Function Decreased Activity Tolerance, Decreased Strength,Limited Range of Motion,Pain,Poor Balance,Poor Safety Awareness Comments Gait Comments Pt ambulated total of ~200 ft w/ SW, no LOB, cues for equal step length and quad act. Stair Climbing Assessment Evaluation Level of Assist On Stairs Standby Assistance Devices Stair Climbing Assistive Devices Axillary Crutches Technique/Endurance Stair Climbing Direction Ascend and Descend Stair Climbing Technique Step to Step Number of Steps Climbed 3 Stair Climbing Set # Repetitions (reps) 2 Comments Stair Climbing Comments Pt ascended/descended 3 steps x2 w/ R axillary crutch and step to pattern SBA w/ cues. Pt states he feels he can complete stairs at home w/o issues. PT-Balance Assessment Sitting Balance and Reactions Static Sitting Balance Ability Good Dynamic Sitting Balance Ability Fair Standing Balance and Reactions Static Standing Balance Ability Good Dynamic Standing Balance Ability Fair Device Used FWW M5 PT-IP Objective Assessments Start: 05/02/21 13:03 Freq: NEEDED Status: Active Protocol: Document 05/02/21 10:15 AB (Rec: 05/02/21 13:19 AB [id number]) Orientation Orientation/Cognition Level of Alertness Alert Orientation Name Language Function Ability Hard of Hearing Safety Awareness Decreased Safety Awareness Memory Description Short Term Impaired Gross Range of Motion Lower Extremity ROM Assessment Right Impaired Impairments R knee flexion: ~ 35 deg R knee extension: ~ 20 deg less to 0 Strength Lower Extremity Strength Assessment Right Impaired Hip 3+/5 Knee 3/5 Coordination Assessment Gross Coordination Gross Coordination WNL Muscle Tone Muscle Tone WNL Yes M6 PT-IP Treatment Start: 05/02/21 13:03 Freq: NEEDED Status: Active Protocol: Document 05/03/21 10:00 KS (Rec: 05/03/21 13:57 KS [id number]) Physical Therapy Treatment Education Education Provided Precautions,Weight Bearing Status,Post-Op Packet,Safety M7 PT-IP Assessment and Plan Start: 05/02/21 13:03 Freq: NEEDED Status: Active Protocol: Document 05/03/21 10:00 KS (Rec: 05/03/21 13:57 KS [id number]) PT Summary Assessment and Plan Potential Rehabilitation Potential Fair Status of Condition at Evaluation Evolving Summary Impairments Pain,ROM,Strength,Balance, Coordination,Sensation,Tone, Cognition,Bed Mobility, Transfers,Gait,Activity Tolerance Assessment Summary Pt SBA to CGA for mobility, transfers, ambulation, and stair training today. Able to ambulate ~200 ft w/ Sw and perform 6 total steps w/ R axillary crutch as he has at home. Pt states he feels safe and ready to d/c home w/ to support if needed. He will benefit from outpatient rehab which he has schedule to begin next week. Goals Bed Mobility Goal Independent Transfer Goal Independent,Front Wheeled Walker Gait Goal Independent,Four Wheel Walker Gait Distance 200 Other Goals ambulation using std walker up/down 2 steps 1 crutch SBA + 20 steps R rail SBA Days to Meet Goals 10 Frequency of Treatment Frequency Of Treatment Twice a Day Treatment Plan Physical Therapy Treatment Plan Bed Mobility Training,Transfer Training,Gait Training, Therapeutic Exercise,Balance Retraining,Post Op Education, Discharge Planning,Hot or Cold Pack,Neuromuscular Re-ed, Coordination Retraining,Manual Therapy Weight Bearing Status Weight Bearing Status Weight Bear as Tolerated Allowed Weight Bearing Amount (enter % RLe wBAT or #) (%) Recommendations To Nursing Amount of Assist Needed 1 Person Assist Discharge Recommendations PT Discharge Recommendations Home with 29/09 Assist Available,Home Health,SNF Rehab,Home vs SNF Transportation Needs at Discharge Private Vehicle,Wheelchair/ Cabulance
--- NOTE | 2021-05-03 11:17 | PC.NURSE ---
Assess- Patient is alert and oriented x3. He has a dressing to his r.knee with aquacel in place, Up with physical therapy and did stairs ... Patient has been discharged to home and his will be here after noon to pick him up.
== END 2021-05-03 13:30 | disposition home or self-care (01) ==
LOC: OR 12:47 → AC 12:47
PROVIDERS: Admitting Provider Orthopaedic Surgery; Family Provider Nurse Practitioner; PCP Nurse Practitioner; Referring Provider Nurse Practitioner; Visit Provider Orthopaedic Surgery
PROC: 0SRC0JZ Replacement of Right Knee Joint with Synthetic Substitute, Open Approach (ICD-10-PCS; CPT 27447; principal; 2021-05-01 12:00)
DX: M17.11 Unilateral primary osteoarthritis, right knee (principal); I10 Essential (primary) hypertension; G47.33 Obstructive sleep apnea (adult) (pediatric)
CPT/HCPCS: 27447; 36415; 73560; 85014; 85018; 94760; 94762; 97110; 97116; 97162; 97530; C1776; G0378; C9290; J0690; J1170; J2270; J2405; J2704; J3010